=== PATIENT | female | born 1995 | race Caucasian/White ===

== ENCOUNTER 2017-07-27 07:05 | Emergency (ER) | payer OTHER ==
[2017-07-27 07:14] VITALS: BP 125/92; PULSE 92; TEMP 98.5; BMI 34.3
--- NOTE | 2017-07-27 07:20 | PDOC ---
History of Present Illness - General Chief Complaint: Ear Problem Stated Complaint: RIGHT EAR PAIN Time Seen by Provider: 07/27/17 07:18 - History of Present Illness Initial Comments: 07/27/17 07:18 Ms. Michelle is a 22 yo female w/ no pmh who presents for evaluation of 2 days of right ear pain. She reports she has tried taking tylenol for it however it was not helpful. Denies any sick contacts. The patient denies chest pain, shortness of breath, headache and dizziness. Denies fever, chills, nausea, vomit, diarrhea and constipation. Denies dysuria, frequency, urgency and hematuria. Allergies: NKDA Past History - Past Medical History Allergies/Adverse Reactions: Allergies Allergy/AdvReac Type Severity Reaction Status Date / Time No Known Allergies Allergy Verified 07/27/17 07:11 Home Medications: Ambulatory Orders Vitamins (Sjr) - 1 tab PO DAILY 08/29/14 Amoxicillin/Potassium Clav [Augmentin 875-125 Tablet] 1 each PO BID #14 tablet 07/27/17 Asthma: No Cancer: No Cardiac Disorders: No COPD: No Diabetes: No HTN: No Seizures: No Thyroid Disease: No Other medical history: denies. - Suicide/Smoking/Psychosocial Hx Smoking History: Current some day smoker Have you smoked in the past 12 months: Yes Number of Cigarettes Smoked Daily: 4 Information on smoking cessation initiated: No Hx Alcohol Use: No Drug/Substance Use Hx: No Hx Substance Use Treatment: No Review of Systems - Review of Systems Comments:: 07/27/17 07:19 GENERAL/CONSTITUTIONAL: No fever or chills. No weakness. HEAD, EYES, EARS, NOSE AND THROAT: +2 days of constant ear pain. No change in vision. No sore throat. CARDIOVASCULAR: No chest pain or shortness of breath RESPIRATORY: No cough, wheezing, or hemoptysis. GASTROINTESTINAL: No nausea, vomiting, diarrhea or constipation. GENITOURINARY: No dysuria, frequency, or change in urination. MUSCULOSKELETAL: No joint or muscle swelling or pain. No neck or back pain. SKIN: No rash NEUROLOGIC: No headache, vertigo, loss of consciousness, or change in strength/ sensation. ENDOCRINE: No increased thirst. No abnormal weight change HEMATOLOGIC/LYMPHATIC: No anemia, easy bleeding, or history of blood clots. ALLERGIC/IMMUNOLOGIC: No hives or skin allergy. *Physical Exam - Vital Signs Last Vital Signs Temp Pulse Resp BP Pulse Ox 98.5 F 92 H 19 125/92 99 07/27/17 07:11 07/27/17 07:11 07/27/17 07:11 07/27/17 07:11 07/27/17 07:11 - Physical Exam Comments: 07/27/17 07:19 GENERAL: Awake, alert, and fully oriented, in no acute distress HEAD: No signs of trauma, normocephalic, atraumatic EYES: PERRLA, EOMI, sclera anicteric, conjunctiva clear ENT: +R inner ear canal erythematous extending to TM. Nares likewise inflammed. Auricles normal inspection, hearing grossly normal, nares patent, oropharynx clear without exudates. Moist mucosa NECK: Normal ROM, supple, no lymphadenopathy, JVD, or masses LUNGS: No distress, speaks full sentences, clear to auscultation bilaterally HEART: Regular rate and rhythm, normal S1 and S2, no murmurs, rubs or gallops, peripheral pulses normal and equal bilaterally. ABDOMEN: Soft, nontender, normoactive bowel sounds. No guarding, no rebound. No masses EXTREMITIES: Normal inspection, Normal range of motion, no edema. No clubbing or cyanosis. NEUROLOGICAL: Cranial nerves II through XII grossly intact. Normal speech, normal gait, no focal sensorimotor deficits SKIN: Warm, Dry, normal turgor, no rashes or lesions noted. Medical Decision Making - Medical Decision Making 07/27/17 07:35 Ms. Michelle is a 22 yo female w/ no pmh who presents w/ symptoms concerning for otitis media. Motrin 800 given for symptomatic relief. 07/27/17 07:55 Augmenting Rx and Ofloxacin given to cover otitis media/externa. Discharging to home. *DC/Admit/Observation/Transfer Diagnosis at time of Disposition: Ear pain, right - Discharge Dispostion Disposition: HOME - Referrals - Patient Instructions Printed Discharge Instructions: Middle Ear Infection Additional Instructions: Please follow-up with primary care physician later this week for evaluation. Take all medications as proscribed. Return to ER if any continued pain, fever, chills, or other concerning symptoms. - Post Discharge Activity
[2017-07-27] MEDS ORDERED: IBUPROFEN 400 MG TABLET (FP) PO ONE ×2 (07:34→07:39)
--- NOTE | 2017-07-27 07:37 | PDOC ---
Attending Attestation - HPI HPI: 07/27/17 07:52 Pt is a 22 yo F with no PMHx who presents to the ED with R ear pain for the past two days. Patient endorses moderate hearing loss. Patient denies any pirulent drainage from the ear. Patient reports associated clear rhinorrhea and sore throat. Patient reports taking Tylenol however denies any relief. Patient denies fever/chills, n/v or headache. Patient denies swimming or history of diabetes. PCP: Dr. Nehemiah Rosas - Medical Decision Making 07/27/17 07:52 Documentation prepared by Elvira Blanchard, acting as medical unit secretary for Stephanie Greer MD <Elvira Blanchard - Last Filed: 07/27/17 07:53> - Resident Resident Name: Bob Salomon - ED Attending Attestation I have performed the following: I have examined & evaluated the patient, The case was reviewed & discussed with the resident, I agree w/resident's findings & plan, Exceptions are as noted - Physicial Exam PE: GENERAL: Awake, alert, and fully oriented, in no acute distress. Tearful. HEAD: No signs of trauma EYES: PERRLA, EOMI, sclera anicteric, conjunctiva clear ENT: Auricles normal inspection, hearing grossly normal, nares patent, oropharynx clear without exudates. Moist mucosa. +Pain on movement of R pinna. R EAC erythematous and edematous. R TM erythematous with purulent effusion. L EAC and TM wnl. NECK: Normal ROM, supple, no lymphadenopathy, JVD, or masses LUNGS: Breath sounds equal, clear to auscultation bilaterally. No wheezes, and no crackles HEART: Regular rate and rhythm, normal S1 and S2, no murmurs, rubs or gallops ABDOMEN: Soft, nontender, normoactive bowel sounds. No guarding, no rebound. No masses EXTREMITIES: Normal range of motion, no edema. No clubbing or cyanosis. No cords, erythema, or tenderness NEUROLOGICAL: Cranial nerves II through XII grossly intact. Normal speech, normal gait SKIN: Warm, Dry, normal turgor, no rashes or lesions noted. - Medical Decision Making Will treat with topical abx and augmentin, as there are physical findings of the EAC itself as well as the TM. <Stephanie Greer - Last Filed: 07/27/17 08:25>
[2017-07-27] MEDS ORDERED: OFLOXACIN 0.3% OTIC SOLUTION 5 ML BOTTLE AD ONE (07:49)
== END 2017-07-27 08:09 | disposition home or self-care (01) ==
LOC: JER 07:05
DX: H66.91 Otitis media, unspecified, right ear (principal); F17.210 Nicotine dependence, cigarettes, uncomplicated
CPT/HCPCS: 99282-25

== ENCOUNTER 2017-07-29 12:15 | Emergency (ER) | payer OTHER ==
[2017-07-29 12:36] VITALS: BP 119/94; PULSE 81; TEMP 98.1
--- NOTE | 2017-07-29 13:35 | PDOC ---
History of Present Illness - General Chief Complaint: Pain Stated Complaint: REVISIT/ EAR PAIN Time Seen by Provider: 07/29/17 12:57 History Source: Patient Exam Limitations: No Limitations - History of Present Illness Initial Comments: 22-year-old female treated a few days ago with ofloxacin and Augmentin for otitis media and externa she returns to the emergency room today for worsening ear pain. 07/29/17 13:30 Past History - Past Medical History Allergies/Adverse Reactions: Allergies Allergy/AdvReac Type Severity Reaction Status Date / Time No Known Allergies Allergy Verified 07/27/17 07:11 Home Medications: Ambulatory Orders Amoxicillin/Potassium Clav [Augmentin 875-125 Tablet] 1 each PO BID #14 tablet 07/27/17 Amoxicillin - [Amoxicillin 500mg Capsule -] 500 mg PO TID 07/29/17 Ketorolac Tromethamine [Toradol] 10 mg PO TID 07/29/17 Asthma: No Cancer: No Cardiac Disorders: No COPD: No Diabetes: No HTN: No Seizures: No Thyroid Disease: No - Suicide/Smoking/Psychosocial Hx Smoking History: Current every day smoker Have you smoked in the past 12 months: Yes Number of Cigarettes Smoked Daily: 4 Information on smoking cessation initiated: Yes Hx Alcohol Use: No Drug/Substance Use Hx: No Hx Substance Use Treatment: No Review of Systems - Review of Systems HEENTM: Yes: Ear Pain All Other Systems: Reviewed and Negative *Physical Exam - Vital Signs Last Vital Signs Temp Pulse Resp BP Pulse Ox 98.1 F 81 20 119/94 99 07/29/17 12:34 07/29/17 12:34 07/29/17 12:34 07/29/17 12:34 07/29/17 12:34 - Physical Exam Comments: GENERAL: The patient is awake, alert, and fully oriented, in no acute distress besides right ear pain. HEAD: Normal with no signs of trauma. EYES: Pupils equal, round and reactive to light, extraocular movements intact, sclera anicteric, conjunctiva clear. ENT: There is pain with manipulation of the pain. There is purulent drainage in the external auditory canal. The tympanic membrane cannot be visualized. NECK: Normal range of motion, supple without lymphadenopathy, JVD, or masses. LUNGS: Breath sounds equal, clear to auscultation bilaterally. No wheezes, and no crackles. HEART: Regular rate and rhythm, normal S1 and S2 without murmur, rub or gallop. ABDOMEN: Soft, nontender, normoactive bowel sounds. No guarding, no rebound. No masses. EXTREMITIES: Normal range of motion, no edema. No clubbing or cyanosis. No cords, erythema, or tenderness. NEUROLOGICAL: Cranial nerves II through XII grossly intact. Normal speech, normal gait. PSYCH: Normal mood, normal affect. SKIN: Warm, Dry, normal turgor, no rashes or lesions noted. 07/29/17 13:31 Medical Decision Making - Medical Decision Making I have discussed this case with Dr. patel from ENT. He will see the patient in follow-up today from the ER to his office. I will treat her pain with Percocet for now. Auralgan and is not available. 07/29/17 13:32 *DC/Admit/Observation/Transfer Diagnosis at time of Disposition: Otitis externa - Discharge Dispostion Disposition: HOME Condition at time of disposition: Stable Decision to Admit order: No - Referrals Referrals: Nehemiah Barber MD [Primary Care Provider] - Costa Lechuga MD [Staff Physician] - - Patient Instructions Printed Discharge Instructions: Otitis Externa, DI for Otitis Externa Additional Instructions: I have gotten you an appointment today right after you leave the emergency rooms you can ago to Dr. patel office at [address] directly across from the hospital he isn't your specialist. Return to the emergency room if your symptoms worsen or go unresolved. - Post Discharge Activity
== END 2017-07-29 13:43 | disposition home or self-care (01) ==
LOC: JERFT 12:15
DX: H60.91 Unspecified otitis externa, right ear (principal)
CPT/HCPCS: 99281-25

== ENCOUNTER 2018-07-07 23:07 | Emergency (ER) | payer OTHER ==
[2018-07-07 23:14] VITALS: BP 120/76; PULSE 92; TEMP 98; BMI 36.0
[2018-07-07] MEDS ORDERED: predniSONE 20 MG TABLET (UD) PO ONE (23:31)
[2018-07-07] MEDS ORDERED: KETOROLAC TROMETHAMINE 60 MG/2 ML VIAL IM ONE (23:31)
--- NOTE | 2018-07-07 23:31 | PDOC ---
Documentation entered by Nancy Nguyen SCRIBE, acting as scribe for Tennille Barba MD. Tennille Barba MD: This documentation has been prepared by the Patrick infante Daisy, SCRIBE, under my direction and personally reviewed by me in its entirety. I confirm that the documentation accurately reflects all work , treatment, procedures, and medical decision making performed by me. History of Present Illness - General Chief Complaint: Pain, Acute Stated Complaint: BACK PAIN X 2 MONTHS History Source: Patient Exam Limitations: No Limitations - History of Present Illness Initial Comments: 07/07/18 23:14 The patient is a 22YOF with no PMHx who presents to the ED with persistent lower back pain for the past 2 months. She reports that she has been lifting and carrying a a 3 year old at home. She admits the back pain is exacerbated with movement and sitting, but improved with standing still. She endorses radiation of the back pain to the right leg as well. Denies any fall or trauma to the area prior to noticing the pain. She has been taking motrin and advil for pain as well as a muscle relaxant, which she is unable to recall the name of. Allergies: NKDA PCP: Dr. Nehemiah Rosas ADULT ROS GENERAL/CONSTITUTIONAL: No fever or chills. No weakness. HEAD, EYES, EARS, NOSE AND THROAT: No change in vision. No ear pain or discharge. No sore throat. CARDIOVASCULAR: No chest pain or shortness of breath. RESPIRATORY: No cough, wheezing, or hemoptysis. GASTROINTESTINAL: No nausea, vomiting, diarrhea or constipation. GENITOURINARY: No dysuria, frequency, or change in urination. MUSCULOSKELETAL: No joint or muscle swelling or pain. No neck pain. (+) Low back pain. SKIN: No rash NEUROLOGIC: No headache, vertigo, loss of consciousness, or change in strength/ sensation. ENDOCRINE: No increased thirst. No abnormal weight change. HEMATOLOGIC/LYMPHATIC: No anemia, easy bleeding, or history of blood clots. ALLERGIC/IMMUNOLOGIC: No hives or skin allergy. EXAM GENERAL: The patient is awake, alert, and fully oriented, in no acute distress. LUNGS: Breath sounds equal, clear to auscultation bilaterally. No wheeze/ crackles. HEART: Regular rate and rhythm, normal S1 and S2 without murmur or rub. ABDOMEN: Soft/nontender/nondistended. BS wnl. No guarding or rebound. No palpable masses. No hepatosplenomegaly. EXTREMITIES: Normal range of motion, no edema. No clubbing or cyanosis. No cords, erythema, or tenderness. BACK: (+) Tender over the L5-S1 area with paraspinal tenderness over the sciatic notch. NEUROLOGICAL: Cranial nerves II through XII grossly intact. Normal speech, normal gait. SKIN: Warm, Dry, normal turgor, no rashes or lesions noted. 07/07/18 23:27 Assessment and plan: This is a 23-year-old female who comes in complaining of 2 months of low back pain radiating to her right leg. Patient has a 3 year-old home that is requiring her to do a lot of lifting of the 3-year-old. Patient on exam had some tenderness over L5-S1 and the sciatic notch on the right otherwise normal exam Patient referred to orthopedist for further follow-up and imaging specifically a MRI. Patient discharged home with prescriptions for naproxen and Robaxin 07/07/18 23:31 Past History - Past Medical History Allergies/Adverse Reactions: Allergies Allergy/AdvReac Type Severity Reaction Status Date / Time No Known Allergies Allergy Verified 07/07/18 23:09 Home Medications: Ambulatory Orders Methocarbamol [Robaxin -] 500 mg PO BID #14 tablet 07/07/18 Naproxen 500 mg PO BID #28 tablet 07/07/18 Asthma: No Cancer: No Cardiac Disorders: No COPD: No Diabetes: No HTN: No Seizures: No Thyroid Disease: No - Suicide/Smoking/Psychosocial Hx Smoking History: Current every day smoker Have you smoked in the past 12 months: Yes Number of Cigarettes Smoked Daily: 4 Hx Alcohol Use: No Drug/Substance Use Hx: No Hx Substance Use Treatment: No *Physical Exam - Vital Signs Last Vital Signs Temp Pulse Resp BP Pulse Ox 98 F 92 H 16 120/76 100 07/07/18 23:10 07/07/18 23:10 07/07/18 23:10 07/07/18 23:10 07/07/18 23:10 *DC/Admit/Observation/Transfer Diagnosis at time of Disposition: Sciatica Qualifiers: Laterality: right Qualified Code(s): M54.31 - Sciatica, right side - Discharge Dispostion Condition at time of disposition: Stable Decision to Admit order: No - Prescriptions Prescriptions: Methocarbamol [Robaxin -] 500 mg PO BID #14 tablet Naproxen 500 mg PO BID #28 tablet - Referrals Referrals: Juan Antonio Oakes MD [Staff Physician] - - Patient Instructions Additional Instructions: For the pain take naproxen 1 tablet twice a day. In addition to the naproxen you can take a muscle relaxer called Robaxin. This may make you drowsy so tried to limit it to the nighttime hours you can take it as often as twice a day however Follow-up with Dr. Oakes the orthopedist. Return to the emergency department immediately with ANY new, persistent or worsening symptoms. Continue any medications as previously prescribed by your physician. You should follow up with your primary doctor as soon as possible regarding today's emergency department visit. . Please make sure your doctor reviews the results of your emergency evaluation. Thank you for coming to the Emergency Department today for your care. It was a pleasure to see you today. Please note that your evaluation is INCOMPLETE until you follow-up with your doctor. - Post Discharge Activity - Attestations Scribe Attestion: 07/07/18 23:34 Documentation prepared by Nancy Nguyen, acting as medical sales for Emergency Dept,PhysicianMD.
== END 2018-07-07 23:36 | disposition home or self-care (01) ==
LOC: FER 23:07
PROC: 3E0233Z Introduction of Anti-inflammatory into Muscle, Percutaneous Approach (ICD-10-PCS; principal; 2018-07-07)
DX: M54.31 Sciatica, right side (principal); F17.210 Nicotine dependence, cigarettes, uncomplicated
CPT/HCPCS: 96372; 99281-25

== ENCOUNTER 2020-10-15 16:17 | Emergency (ER) | payer OTHER ==
[2020-10-15 16:42] VITALS: BMI 25.7
[2020-10-15 18:16] LABS: URINE APPEARANCE CLEAR; URINE BILIRUBIN NEGATIVE (NEGATIVE); URINE COLOR YELLOW; URINE GLUCOSE (UA) NEGATIVE (NEGATIVE); URINE KETONE 3+ (NEGATIVE); URINE LEUK ESTERASE NEGATIVE (NEGATIVE); URINE NITRITE NEGATIVE (NEGATIVE); URINE PROTEIN NEGATIVE (NEGATIVE); URINE UROBILINOGEN 0.2 mg/dL (0.2-1.0)
[2020-10-15 18:17] LABS: BASO % 0.2 % (0-2.0); EOS % 0.3 % (0-4.5); HEMATOCRIT 32.4 % (32.4-45.2); HEMOGLOBIN 11.6 GM/dL (10.7-15.3); LYMPH % 10.4 % (8-40); MCH 34.1 pg (25.7-33.7); MCHC 35.7 g/dl (32.0-36.0); MEAN CELL VOLUME 95.4 fl (80-96); MEAN PLT VOLUME 7.8 fl (7.5-11.1); MONO % 5.3 % (3.8-10.2); NEUT % 83.8 % (42.8-82.8); PLATELET COUNT 222 10^3/uL (134-434); RDW 12.9 % (11.6-15.6); WHITE BLOOD COUNT 10.3 K/mm3 (4.0-10.0)
[2020-10-15 18:34] LABS: CHLORIDE 109 mmol/L (98-107); SODIUM 140 mmol/L (136-145)
[2020-10-15 18:36] LABS: CALCIUM 8.1 mg/dL (8.5-10.1)
[2020-10-15 18:37] LABS: ANION GAP 6 MMOL/L (8-16); BLOOD UREA NITROGEN 9.5 mg/dL (7-18); CO2 24 mmol/L (21-32); GLUCOSE,RANDOM 69 mg/dL (74-106)
[2020-10-15 18:40] LABS: CREATININE 0.6 mg/dL (0.55-1.3); SGOT/AST 14 U/L (15-37); SGPT/ALT 21 U/L (13-61)
[2020-10-15 18:42] LABS: BILIRUBIN,TOTAL 0.2 mg/dL (0.2-1); TOT PROT 6.2 g/dl (6.4-8.2)
[2020-10-15 18:43] LABS: ALK PHOS 46 U/L (45-117)
[2020-10-15 21:14] VITALS: BP 109/67; PULSE 63; TEMP 98.5
== END 2020-10-15 22:06 | disposition home or self-care (01) ==
LOC: JER 16:17
DX: E86.0 Dehydration (principal); E16.2 Hypoglycemia, unspecified; R55 Syncope and collapse
CPT/HCPCS: 36415; 76815-TC; 80053; 81003; 82962; 84439; 84443; 84484; 85025; 93005; 93010; 99284-25

== ENCOUNTER 2020-11-10 14:01 | Emergency (ER) | payer OTHER ==
[2020-11-10] MEDS ORDERED: SODIUM CHLORIDE 1,000 ML IV STA (14:17)
[2020-11-10] MEDS ORDERED: ACETAMINOPHEN 1000 MG/100 ML VIAL (NON FORMULARY) IVPB ONE (14:17)
[2020-11-10] MEDS ORDERED: MAG HYDROX/AL HYDROX/SIMETH 30 ML UNIT-DOSE CUP PO ONE (14:22)
[2020-11-10] MEDS ORDERED: ACETAMINOPHEN INJECTION 100 ML IVPB ONE (14:40)
[2020-11-10] MEDS ORDERED: MAG HYDROX/AL HYDROX/SIMETH 30 ML UNIT-DOSE CUP ONE (14:40)
[2020-11-10 14:49] VITALS: BP 120/57; PULSE 99; TEMP 97.9; BMI 27.1
[2020-11-10 15:08] LABS: BASO % 0.4 % (0-2.0); EOS % 0.5 % (0-4.5); HEMOGLOBIN 11.2 GM/dl (10.7-15.3); LYMPH % 17.1 % (8-40); MCH 33.3 pg (25.7-33.7); MCHC 33.9 g/dl (32.0-36.0); MEAN CELL VOLUME 98.2 fl (80-96); MEAN PLT VOLUME 7.8 fl (7.5-11.1); MONO % 7.4 % (3.8-10.2); NEUT % 74.6 % (42.8-82.8); PLATELET COUNT 243 10^3/uL (134-434); RBC 3.36 M/mm3 (3.60-5.2); RDW 12.3 % (11.6-15.6); WHITE BLOOD COUNT 6.9 K/mm3 (4.0-10.8)
[2020-11-10 15:16] LABS: ALBUMIN 3.1 g/dl (3.4-5.0); BILIRUBIN,TOTAL 0.4 mg/dl (0.2-1); CALCIUM 8.5 mg/dl (8.5-10); CREATININE 0.6 mg/dl (0.55-1.3); TOT PROT 6.2 g/dl (6.4-8.2)
== END 2020-11-10 16:46 | disposition home or self-care (01) ==
LOC: FER 14:01
PROC: 3E033NZ Introduction of Analgesics, Hypnotics, Sedatives into Peripheral Vein, Percutaneous Approach (ICD-10-PCS; principal; 2020-11-10)
PROC: 3E0337Z Introduction of Electrolytic and Water Balance Substance into Peripheral Vein, Percutaneous Approach (ICD-10-PCS; 2020-11-10)
DX: R10.9 Unspecified abdominal pain (principal)
CPT/HCPCS: 36415; 80053; 81003; 83690; 85025; 87086; 99284-25; J0131

== ENCOUNTER 2021-03-18 04:07 | Inpatient (IN) | payer OTHER ==
[~2021-03-18 04:07] MED LIST: DEXTROSE 5%-LACTATED RINGERS 1,000 ML IV SCH
[2021-03-18] MEDS ORDERED: AMPICILLIN - 2 GM in SODIUM CHLORIDE 100 ML IVPB ONE (04:45)
[2021-03-18 04:50] LABS: BASO % 0.3 % (0-2.0); EOS % 0.3 % (0-4.5); HEMATOCRIT 30.6 % (32.4-45.2); HEMOGLOBIN 10.4 GM/dL (10.7-15.3); LYMPH % 13.6 % (8-40); MCH 31.1 pg (25.7-33.7); MCHC 33.9 g/dl (32.0-36.0); MEAN CELL VOLUME 91.6 fl (80-96); MEAN PLT VOLUME 8.7 fl (7.5-11.1); MONO % 10.5 % (3.8-10.2); NEUT % 75.3 % (42.8-82.8); PLATELET COUNT 255 10^3/uL (134-434); RBC 3.34 M/mm3 (3.60-5.2); RDW 12.8 % (11.6-15.6); WHITE BLOOD COUNT 10.6 K/mm3 (4.0-10.0)
[2021-03-18] MEDS ORDERED: BUTORPHANOL TARTRATE 2 MG/ML VIAL ONE (04:50)
[2021-03-18] MEDS ORDERED: PROMETHAZINE HCL 25 MG/1 ML VIAL ONE (04:50)
[2021-03-18] MEDS ORDERED: AMPICILLIN SODIUM 2 GM VIAL ONE (04:52)
[2021-03-18 05:05] VITALS: BMI 32.5
[2021-03-18 05:11] LABS: CALCIUM 8.3 mg/dL (8.5-10.1)
[2021-03-18 05:12] LABS: BLOOD UREA NITROGEN 9.7 mg/dL (7-18)
[2021-03-18 05:15] LABS: CREATININE 0.7 mg/dL (0.55-1.3)
[2021-03-18] MEDS ORDERED: BUTORPHANOL TARTRATE 1 MG/ML VIAL IVPB ONE (05:45)
[2021-03-18] MEDS ORDERED: PROMETHAZINE HCL 25 MG/1 ML VIAL IVPB ONE (05:45)
[2021-03-18] MEDS ORDERED: oxyCODONE HCL 5 MG TABLET PO PRN (07:56)
[2021-03-18] MEDS ORDERED: WITCH HAZEL 50% (TUCKS) 40 PAD/JAR PAD TP PRN (07:56)
[2021-03-18] MEDS ORDERED: METHYLERGONOVINE MALEATE 0.2 MG/1 ML AMP IM PRN (07:56)
[2021-03-18] MEDS ORDERED: BENZOCAINE 20% 57 GM BOTTLE TP PRN (07:56)
[2021-03-18] MEDS ORDERED: BENZOCAINE 28 GM HEMORRHOIDAL OINTMENT TP PRN (07:56)
[2021-03-18] MEDS ORDERED: BISACODYL 10 MG SUPP.RECT RC PRN (07:56)
[2021-03-18] MEDS ORDERED: ACETAMINOPHEN 325 MG TABLET (FP) PO PRN (07:56)
[2021-03-18] MEDS ORDERED: OXYTOCIN 20 UNITS in 0.9% NS 20 UNIT/1,000 ML INFUS.BAG IV SCH (08:00)
[2021-03-18 08:13] LABS: CORD HCO3 10.3 mmHg (20-29); CORD PCO2 58.1 mmHg (30-78)
[2021-03-18 08:15] LABS: CORD HCO3 12.1 mmHg (20-29); CORD PCO2 91.1 mmHg (30-78)
[2021-03-18 08:24] LABS: CORD pH 6.742 (7.14-7.44)
[2021-03-18 08:25] LABS: CORD pH 6.868 (7.14-7.44)
[2021-03-18] MEDS ORDERED: OXYTOCIN 20 UNITS in 0.9% NS 20 UNIT/1,000 ML INFUS.BAG IV ONE (09:30)
[2021-03-18 09:50] LABS: BASO % 0.2 % (0-2.0); EOS % 0.1 % (0-4.5); HEMATOCRIT 28.6 % (32.4-45.2); HEMOGLOBIN 9.7 GM/dL (10.7-15.3); LYMPH % 6.8 % (8-40); MCH 31.1 pg (25.7-33.7); MCHC 33.8 g/dl (32.0-36.0); MEAN CELL VOLUME 92.1 fl (80-96); MEAN PLT VOLUME 8.5 fl (7.5-11.1); MONO % 7.4 % (3.8-10.2); NEUT % 85.5 % (42.8-82.8); PLATELET COUNT 209 10^3/uL (134-434); RBC 3.11 M/mm3 (3.60-5.2); RDW 12.8 % (11.6-15.6); WHITE BLOOD COUNT 12.2 K/mm3 (4.0-10.0)
[2021-03-18 09:54] LABS: INR 0.98 (0.83-1.09); PROTHROMBIN TIME (PATIENT) 11.3 SEC (9.7-13.0)
[2021-03-18] MEDS: AMPICILLIN - 1 GM in SODIUM CHLORIDE 100 ML IVPB SCH ×2 (09:55→13:31)
[2021-03-18 10:48] LABS: COCAINE, UR NEGATIVE (NEGATIVE); METHADONE, UR NEGATIVE (NEGATIVE); OPIATES, URI NEGATIVE (NEGATIVE); PHENCYCLIDINE,URINE NEGATIVE (NEGATIVE); URINE BARBITURATES NEGATIVE (NEGATIVE)
[2021-03-18 10:49] LABS: URINE AMPHETAMINES NEGATIVE (NEGATIVE); URINE BENZODIAZEPINES NEGATIVE (NEGATIVE)
[2021-03-18 12:07] LABS: HIV INTERPRETATION NEGATIVE (NEGATIVE)
[2021-03-18] MEDS: PRENATAL VITAMINS W/ FOLIC ACID TABLET (FP) PO SCH (13:24)
[2021-03-18] MEDS: IBUPROFEN 600 MG TABLET (FP) PO PRN (18:32)
[2021-03-19] MEDS: IBUPROFEN 600 MG TABLET (FP) PO PRN ×4 (00:12→23:28)
[2021-03-19 08:53] LABS: BASO % 0.4 % (0-2.0); EOS % 1.1 % (0-4.5); HEMATOCRIT 23.5 % (32.4-45.2); HEMOGLOBIN 7.9 GM/dL (10.7-15.3); LYMPH % 27.4 % (8-40); MCH 31.1 pg (25.7-33.7); MCHC 33.6 g/dl (32.0-36.0); MEAN CELL VOLUME 92.5 fl (80-96); MEAN PLT VOLUME 8.6 fl (7.5-11.1); MONO % 10.1 % (3.8-10.2); PLATELET COUNT 200 10^3/uL (134-434); RBC 2.54 M/mm3 (3.60-5.2); RDW 13.1 % (11.6-15.6); WHITE BLOOD COUNT 6.4 K/mm3 (4.0-10.0)
[2021-03-19] MEDS: PRENATAL VITAMINS W/ FOLIC ACID TABLET (FP) PO SCH (09:22)
[2021-03-19] MEDS: FERROUS SO4 325 MG TABLET (FP) PO SCH (21:28)
[2021-03-19] MEDS ORDERED: SENNOSIDES/DOCUSATE COMBO (SENNA PLUS) TABLET (UD) PO PRN (22:00)
[2021-03-20] MEDS: IBUPROFEN 600 MG TABLET (FP) PO PRN (06:13)
[2021-03-20 09:12] LABS: HEMATOCRIT 24.4 % (32.4-45.2); MCH 30.5 pg (25.7-33.7); MCHC 32.8 g/dl (32.0-36.0); MEAN PLT VOLUME 8.4 fl (7.5-11.1); PLATELET COUNT 215 10^3/uL (134-434); RBC 2.62 M/mm3 (3.60-5.2); WHITE BLOOD COUNT 5.8 K/mm3 (4.0-10.0)
[2021-03-20] MEDS: FERROUS SO4 325 MG TABLET (FP) PO SCH (10:47)
[2021-03-20] MEDS: PRENATAL VITAMINS W/ FOLIC ACID TABLET (FP) PO SCH (10:47)
[2021-03-20 12:08] VITALS: BP 127/87; PULSE 103; TEMP 97.7
== END 2021-03-20 14:31 | disposition home or self-care (01) | DRG 560 ==
LOC: JLDR 04:07 → J3W 10:08 → J3CN 03-19 10:32 → J3W 03-19 10:34
PROVIDERS: ADMIT Obstetrics & Gynecology; ATTEND Obstetrics & Gynecology
PROC: 10E0XZZ Delivery of Products of Conception, External Approach (ICD-10-PCS; principal; 2021-03-18)
DX: O45.93 Premature separation of placenta, unspecified, third trimester (principal); O99.013 Anemia complicating pregnancy, third trimester; Z3A.40 40 weeks gestation of pregnancy; Z37.0 Single live birth
CPT/HCPCS: 36415; 36600; 59409; 80048; 80307; 82803; 85025; 85027; 85362; 85384; 85610; 85730; 86762; 86780; 86850; 86900; 86901; 87340; 87389; 88307-TC; C9803; U0003; U0005

== ENCOUNTER 2023-12-13 00:12 | Emergency (ER) | payer OTHER ==
[2023-12-13 00:21] VITALS: BP 100/64; PULSE 90; RESP 16; TEMP 97.5; BMI 27.4
[2023-12-13 00:58] LABS: PH,URINE 5.5 (5.0-8.0); URINE APPEARANCE CLEAR; URINE BILIRUBIN NEGATIVE (NEGATIVE); URINE COLOR YELLOW; URINE GLUCOSE (UA) NEGATIVE (NEGATIVE); URINE KETONE NEGATIVE (NEGATIVE); URINE LEUK ESTERASE NEGATIVE (NEGATIVE); URINE NITRITE NEGATIVE (NEGATIVE); URINE PROTEIN NEGATIVE (NEGATIVE); URINE UROBILINOGEN 0.2 mg/dL (0.2-1.0)
[2023-12-13 01:00] LABS: HCG,QUALITATIVE URINE Negative
[2023-12-13] MEDS ORDERED: IBUPROFEN 600 MG TABLET (FP) PO ONE (02:22)
[2023-12-13] MEDS: IBUPROFEN 600 MG TABLET (FP) PO ONE (02:24)
[2023-12-13 02:51] LABS: PROTHROMBIN TIME (PATIENT) 11.3 SEC (9.7-13.0)
[2023-12-13 02:53] LABS: BASO % 0.3 % (0-2.0); EOS % 0.7 % (0-4.5); HEMOGLOBIN 12.3 GM/dL (10.7-15.3); MCH 30.8 pg (25.7-33.7); MCHC 33.2 g/dl (32.0-36.0); MEAN CELL VOLUME 92.8 fl (80-96); MEAN PLT VOLUME 7.7 fl (7.5-11.1); MONO % 7.8 % (3.8-10.2); NEUT % 71.2 % (42.8-82.8); PLATELET COUNT 371 10^3/uL (134-434); RBC 3.98 M/mm3 (3.60-5.2); RDW 14.5 % (11.6-15.6); WHITE BLOOD COUNT 8.7 K/mm3 (4.0-10.0)
[2023-12-13 03:08] LABS: POTASSIUM 5.1 mmol/L (3.5-5.1)
[2023-12-13 03:10] LABS: ALBUMIN 3.8 g/dl (3.4-5.0); BLOOD UREA NITROGEN 13.6 mg/dL (7-18); CALCIUM 9.2 mg/dL (8.5-10.1)
[2023-12-13 03:14] LABS: CREATININE 0.8 mg/dL (0.55-1.3)
[2023-12-13 03:15] LABS: BILIRUBIN,TOTAL 0.3 mg/dL (0.2-1); TOT PROT 7.5 g/dl (6.4-8.2)
[2023-12-13 04:05] LABS: HEMATOCRIT 36.1 % (32.4-45.2); HEMOGLOBIN 12.1 GM/dL (10.7-15.3); MCH 30.9 pg (25.7-33.7); MCHC 33.5 g/dl (32.0-36.0); MEAN CELL VOLUME 92.4 fl (80-96); MEAN PLT VOLUME 7.8 fl (7.5-11.1); PLATELET COUNT 374 10^3/uL (134-434); RDW 14.3 % (11.6-15.6); WHITE BLOOD COUNT 7.9 K/mm3 (4.0-10.0)
== END 2023-12-13 03:58 | disposition left against medical advice (07) ==
LOC: JER 00:12
DX: R10.2 Pelvic and perineal pain (principal); R10.30 Lower abdominal pain, unspecified; R68.83 Chills (without fever)
CPT/HCPCS: 36415; 76830-TC; 80053; 81003; 84703; 85025; 85027; 85610; 85730; 86850; 86900; 86901; 87086; 99284-25